=== PATIENT | male | born 1985 | race African-American/Black ===

== ENCOUNTER 2018-05-06 19:07 | Emergency (ER) | payer OTHER ==
[~2018-05-06] VITALS: Ht 177.8 cm; Wt 97.5 kg
--- NOTE | 2018-05-06 19:15 | NUR ---
Patient to ER bed 4 to gown for evaluation. Side rails up. Report given to VIC Garcia.
[2018-05-06 19:16] VITALS: BP_SYST 118
--- NOTE | 2018-05-06 20:00 | NUR ---
2000 - Assumed care of pt. Pt states that he was at home in his garage fixing some thing, when a piece of metal fell, and as he was trying to catch it, the metal cut his right forearm and right hand 4th digit. Bleeding is controlled, pt states he is up to date on his tetanus shot. A&OX4, resp even and unlabored.
--- NOTE | 2018-05-06 20:05 | NUR ---
2005 - ER at bedside examining patient.
[2018-05-06] MEDS ORDERED: LIDOCAINE 1% 10 MG/ML, 20 ML MDV IJ ONE (20:15)
[2018-05-06] MEDS ORDERED: BACITRACIN 1 GM OINT TP ONE (20:15)
[2018-05-06] MEDS ORDERED: LIDOCAINE 1%, 20 ML MDV 20 ML ONE (20:17)
[2018-05-06 20:33] VITALS: BP_SYST 118
== END 2018-05-06 20:33 | disposition home or self-care (01) ==
LOC: SED 19:07
DX: S51.811A Laceration without foreign body of right forearm, initial encounter (principal); W26.8XXA Contact with other sharp object(s), not elsewhere classified, initial encounter; Y93.89 Activity, other specified; Y92.89 Other specified places as the place of occurrence of the external cause; Y99.8 Other external cause status
CPT/HCPCS: 12002; 99283; J2001